=== PATIENT | male | born 1945 | race Hispanic/Latino ===

== ENCOUNTER 2020-09-19 08:58 | Emergency (ER) | payer MEDICARE ==
[2020-09-19] MEDS ORDERED: METHYLPREDNISOLONE SOD SUCC 125MG/2ML VIAL ONE (09:30)
[2020-09-19] MEDS ORDERED: MORPHINE SULFATE 4 MG/1ML SYG ONE (09:31)
[2020-09-19] MEDS ORDERED: KETOROLAC TROMETHAMINE 15MG/ML ONE (11:02)
== END 2020-09-19 12:20 | disposition home or self-care (01) ==
LOC: EDH 08:58
DX: S60.561A Insect bite (nonvenomous) of right hand, initial encounter (principal); L03.113 Cellulitis of right upper limb; L03.313 Cellulitis of chest wall; E11.9 Type 2 diabetes mellitus without complications; I10 Essential (primary) hypertension; E78.00 Pure hypercholesterolemia, unspecified; Z87.891 Personal history of nicotine dependence; W57.XXXA Bitten or stung by nonvenomous insect and other nonvenomous arthropods, initial encounter; Y93.89 Activity, other specified; Y92.89 Other specified places as the place of occurrence of the external cause; Y99.8 Other external cause status
CPT/HCPCS: 73130; 96374; 96375; 99285; J1885; J2270; J2930

== ENCOUNTER 2020-11-17 18:19 | Emergency (ER) | payer MEDICARE ==
[2020-11-17] MEDS ORDERED: LIDOCAINE HCL 1% 20 ML VIAL ONE (19:52)
[2020-11-21] MEDS ORDERED: LISI40TA4 PO (01:25)
== END 2020-11-17 21:03 | disposition home or self-care (01) ==
LOC: EDH 18:19
DX: S61.211A Laceration without foreign body of left index finger without damage to nail, initial encounter (principal); S61.412A Laceration without foreign body of left hand, initial encounter; W23.0XXA Caught, crushed, jammed, or pinched between moving objects, initial encounter; I10 Essential (primary) hypertension; E11.9 Type 2 diabetes mellitus without complications; E78.00 Pure hypercholesterolemia, unspecified; Z21 Asymptomatic human immunodeficiency virus [HIV] infection status; Y93.89 Activity, other specified; Y92.89 Other specified places as the place of occurrence of the external cause; Y99.8 Other external cause status
CPT/HCPCS: 12002; 73140

== ENCOUNTER 2020-11-19 17:46 | Inpatient (IN) | payer MEDICARE ==
[~2020-11-19] VITALS: Ht 172.7 cm; Wt 68.5 kg
[2020-11-19 18:21] LABS: BASOPHILS % (AUTO) 0.5 % (0.0-5.0); EOSINOPHILS % (AUTO) 1.3 % (0.0-8.0); HEMATOCRIT 37.5 % (42-54); LYMPHOCYTES % (AUTO) 6.1 % (21.0-51.0); MEAN CORPUSCULAR HEMOGLOBIN 30.6 pg (27.0-33.0); MEAN CORPUSCULAR HGB CONC 33.9 g/dL (32.0-36.0); MEAN CORPUSCULAR VOLUME 90.4 fL (79-99); MONOCYTES % (AUTO) 8.4 % (3.0-13.0); NEUTROPHILS % (AUTO) 83.6 % (40.0-77.0); PLATELET COUNT (AUTO) 183 K/uL (130-400); RED BLOOD CELL COUNT(AUTO) 4.15 MIL/uL (4.50-6.20); RED CELL DISTRIBUTION WIDTH 13.8 % (11.0-15.5); WHITE BLOOD COUNT (AUTO) 8.4 K/uL (4.8-10.8)
[2020-11-19] MEDS ORDERED: CEFTRIAXONE 1G VIAL ONE (18:25)
[2020-11-19] MEDS ORDERED: 0.9%NACL 50ML 50 ML IV ONE (18:26)
[2020-11-19 18:41] LABS: PROTHROMBIN TIME 10.7 SEC (9.6-11.6)
[2020-11-19 18:42] LABS: PARTIAL THROMBOPLASTIN TIME 29.1 SEC (26.3-35.5)
[2020-11-19 18:52] LABS: CREATININE 1.2 mg/dL (0.5-1.5); POTASSIUM 4.1 mmol/L (3.5-5.1)
[2020-11-19] MEDS ORDERED: AZITHROMYCIN 500MG+NS 250ML 250 ML IV ONE (18:58)
[2020-11-19 19:07] LABS: ALBUMIN 3.7 g/dL (3.5-5.0); BILIRUBIN,TOTAL 0.3 mg/dL (0.2-1.0); TOTAL PROTEIN, SERUM 8.2 g/dL (6.0-8.3)
[2020-11-19 19:08] LABS: CREATINE KINASE, TOTAL 60 U/L (21-232); MYOGLOBIN 41 ng/mL (10-92); TROPONIN I < 0.04 ng/mL (0.00-0.06)
[2020-11-19 19:09] LABS: APPEARANCE,URINE Clear (CLEAR); BILIRUBIN,URINE Negative (NEGATIVE); COLOR,URINE Yellow (YELLOW); GLUCOSE, URINE (UA) Negative (NEGATIVE); KETONES,URINE Negative (NEGATIVE); LEUKOCYTE ESTERASE ,URINE Negative (NEGATIVE); NITRATE,URINE Negative (NEGATIVE); OCCULT BLOOD,URINE Trace (NEGATIVE); PROTEIN,URINE Trace mg/dL (NEGATIVE); UROBILINOGEN,URINE 0.2 mg/dL (0.2-1.0)
[2020-11-19 19:31] LABS: BACTERIA,URINE Rare /HPF (None Seen); RBC,URINE None Seen /HPF (0-1); SQUAMOUS EPITHELIAL CELL,UR None Seen /HPF (0-2); WBC,URINE 0-1 /HPF (0-1)
[2020-11-19] MEDS: INSULIN HUMULIN R 100 UNIT/ML 3ML SQ SCH (21:00)
[2020-11-19] MEDS ORDERED: MAGNESIUM 2GM PREMIX 50ML 50 ML IV PRN (21:00)
[2020-11-19] MEDS ORDERED: DEXTROSE 50%-WATER 50 ML DISP.SYRIN IV PRN (21:00)
[2020-11-19] MEDS ORDERED: GLUCAGON 1MG KIT 1 MG ML IM PRN (21:00)
[2020-11-19] MEDS ORDERED: ONDANSETRON 4MG INJ IV PRN (21:15)
[2020-11-19] MEDS: CEFTRIAXONE 1G VIAL IVP SCH (21:15)
[2020-11-19] MEDS: DOXYCYCLINE 100MG+NS 250ML IV SCH (21:15)
[2020-11-19] MEDS ORDERED: DEXAMETHASONE SOD PHOSPHATE 4 MG/ML 1ML VIAL IVP SCH (21:15)
[2020-11-19] MEDS ORDERED: ERGOCALCIFEROL (VITAMIN D2) 50,000 UNIT CAPSULE PO ONE (21:15)
[2020-11-19] MEDS ORDERED: GUAIFENESIN-DM 200/20 MG 10 ML PO PRN (21:15)
[2020-11-19] MEDS ORDERED: ACETAMINOPHEN 325 MG TAB PO PRN ×2 (21:15)
[2020-11-19] MEDS ORDERED: DEXAMETHASONE SOD PHOSPHATE 10MG/ML 1ML VIAL ONE (22:45)
[2020-11-19] MEDS ORDERED: DOXYCYCLINE 100MG+NS 250ML 250 ML IV ONE (22:46)
[2020-11-19] MEDS ORDERED: ACETYLCYSTEINE 600 MG CAPSULE ONE (22:46)
[2020-11-19] MEDS ORDERED: ACETAMINOPHEN 325 MG TAB ONE (23:07)
[2020-11-20] MEDS ORDERED: CEFTRIAXONE 1G VIAL ONE (05:59)
[2020-11-20] MEDS: INSULIN HUMULIN R 100 UNIT/ML 3ML SQ SCH ×4 (07:30→21:00)
[2020-11-20] MEDS ORDERED: FAMOTIDINE 20MG TAB ONE (07:36)
[2020-11-20] MEDS ORDERED: ZINC SULFATE 220 CAPSULE ONE (07:37)
[2020-11-20] MEDS ORDERED: DOXYCYCLINE 100MG+NS 250ML 250 ML IV ONE (07:37)
[2020-11-20] MEDS ORDERED: BENZONATATE 100 MG CAPSULE PO ONE (08:49)
[2020-11-20] MEDS: ASCORBIC ACID 500 MG TAB PO SCH (09:00)
[2020-11-20] MEDS: LISINOPRIL 20 MG TABLET PO SCH (09:00)
[2020-11-20] MEDS: ZINC SULFATE 220 CAPSULE PO SCH (09:00)
[2020-11-20] MEDS: ACETYLCYSTEINE 600 MG CAPSULE PO SCH ×2 (09:00→21:13)
[2020-11-20] MEDS: BENZONATATE 100 MG CAPSULE PO SCH ×3 (09:00→21:00)
[2020-11-20] MEDS: FAMOTIDINE 20MG TAB PO SCH ×2 (09:00→21:00)
[2020-11-20 09:01] LABS: BASOPHILS % (AUTO) 0.6 % (0.0-5.0); EOSINOPHILS % (AUTO) 0.2 % (0.0-8.0); HEMATOCRIT 37.6 % (42-54); LYMPHOCYTES % (AUTO) 11.4 % (21.0-51.0); MEAN CORPUSCULAR VOLUME 90.8 fL (79-99); MONOCYTES % (AUTO) 10.7 % (3.0-13.0); NEUTROPHILS % (AUTO) 76.8 % (40.0-77.0); PLATELET COUNT (AUTO) 164 K/uL (130-400); RED BLOOD CELL COUNT(AUTO) 4.14 MIL/uL (4.50-6.20); RED CELL DISTRIBUTION WIDTH 14.1 % (11.0-15.5); WHITE BLOOD COUNT (AUTO) 6.4 K/uL (4.8-10.8)
[2020-11-20] MEDS: DOXYCYCLINE 100MG+NS 250ML IV SCH ×2 (09:15→21:15)
[2020-11-20] MEDS: CEFTRIAXONE 1G VIAL IVP SCH ×2 (09:15→21:12)
[2020-11-20] MEDS ORDERED: LISINOPRIL 20 MG TABLET ONE (09:46)
[2020-11-20 10:02] LABS: ALANINE AMINOTRANSFERASE 24 U/L (12-78); ALBUMIN 3.4 g/dL (3.5-5.0); ASPARTATE AMINOTRANSFERASE 23 U/L (10-37); BILIRUBIN,TOTAL 0.3 mg/dL (0.2-1.0); CARBON DIOXIDE 26 mmol/L (21-32); CHLORIDE 102 mmol/L (101-111); GLOMERULAR FILTR. RATE CALC 77 mL/min (>60); GLUCOSE,RANDOM 120 mg/dL (70-105); LACTATE DEHYDROGENASE 150 U/L (81-234); POTASSIUM 3.9 mmol/L (3.5-5.1); SODIUM SERUM 137 mmol/L (136-145); TOTAL PROTEIN, SERUM 7.6 g/dL (6.0-8.3); UREA NITROGEN, BLOOD 15 mg/dL (7-18)
[2020-11-20] MEDS ORDERED: ACETAMINOPHEN 325 MG TAB ONE (16:18)
[2020-11-20 21:01] VITALS: BP 154/75
[2020-11-20 23:52] VITALS: BP 165/72
[2020-11-21] MEDS ORDERED: LISI40TA9 PO (01:25)
[2020-11-21] MEDS ORDERED: FAMO20TA8 PO (01:25)
[2020-11-21] MEDS ORDERED: ATOR20TA65 PO (01:25)
[2020-11-21] MEDS ORDERED: ABAC1TAB15 PO (01:25)
[2020-11-21] MEDS ORDERED: GLIP5TAB11 PO (01:25)
[2020-11-21] MEDS ORDERED: CEPH500T PO (01:25)
[2020-11-21 04:09] VITALS: BP 134/59
[2020-11-21 06:55] LABS: BASOPHILS % (AUTO) 0.4 % (0.0-5.0); EOSINOPHILS % (AUTO) 0.2 % (0.0-8.0); HEMATOCRIT 36.2 % (42-54); LYMPHOCYTES % (AUTO) 23.7 % (21.0-51.0); MEAN CORPUSCULAR HEMOGLOBIN 30.1 pg (27.0-33.0); MEAN CORPUSCULAR HGB CONC 33.1 g/dL (32.0-36.0); MEAN CORPUSCULAR VOLUME 90.7 fL (79-99); MONOCYTES % (AUTO) 14.7 % (3.0-13.0); NEUTROPHILS % (AUTO) 60.8 % (40.0-77.0); PLATELET COUNT (AUTO) 162 K/uL (130-400); RED BLOOD CELL COUNT(AUTO) 3.99 MIL/uL (4.50-6.20); RED CELL DISTRIBUTION WIDTH 13.9 % (11.0-15.5); WHITE BLOOD COUNT (AUTO) 4.6 K/uL (4.8-10.8)
[2020-11-21] MEDS: INSULIN HUMULIN R 100 UNIT/ML 3ML SQ SCH ×3 (07:10→16:30)
[2020-11-21 07:38] LABS: ALBUMIN 3.1 g/dL (3.5-5.0); BILIRUBIN,TOTAL 0.2 mg/dL (0.2-1.0); CREATININE 1.1 mg/dL (0.5-1.5); CRP QUANTITATIVE 54.2 mg/L (0.00-9.0); POTASSIUM 3.6 mmol/L (3.5-5.1); TOTAL PROTEIN, SERUM 7.2 g/dL (6.0-8.3)
[2020-11-21] MEDS: ACETYLCYSTEINE 600 MG CAPSULE PO SCH (08:56)
[2020-11-21] MEDS: CEFTRIAXONE 1G VIAL IVP SCH (08:56)
[2020-11-21] MEDS: ASCORBIC ACID 500 MG TAB PO SCH (08:56)
[2020-11-21] MEDS: LISINOPRIL 20 MG TABLET PO SCH (08:56)
[2020-11-21] MEDS: BENZONATATE 100 MG CAPSULE PO SCH ×2 (08:56→13:16)
[2020-11-21] MEDS: FAMOTIDINE 20MG TAB PO SCH (08:56)
[2020-11-21] MEDS: ZINC SULFATE 220 CAPSULE PO SCH (08:56)
[2020-11-21] MEDS ORDERED: DOXYCYCLINE 100MG+NS 250ML 250 ML IV SCH (09:15)
[2020-11-21 10:18] VITALS: BP_SYST 106; BP_SYST 154; BP_DIAS 62; BP_DIAS 63
[2020-11-21 13:05] VITALS: BP 150/67
[2020-11-21] MEDS ORDERED: DOXY100T2 PO (17:19)
[2020-11-21] MEDS ORDERED: ASPI-1197 PO (17:19)
== END 2020-11-21 19:45 | disposition home or self-care (01) | DRG 177 ==
LOC: EDH 17:46 → EDHIP 21:02 → 4BH 11-20 18:53
PROVIDERS: ADMIT Internal Medicine; ATTEND Internal Medicine
DX: U07.1 COVID-19 (principal); J12.82 Pneumonia due to coronavirus disease 2019; E11.9 Type 2 diabetes mellitus without complications; E78.00 Pure hypercholesterolemia, unspecified; Z21 Asymptomatic human immunodeficiency virus [HIV] infection status; I10 Essential (primary) hypertension; E78.5 Hyperlipidemia, unspecified; Z83.3 Family history of diabetes mellitus; D64.9 Anemia, unspecified; E86.0 Dehydration
CPT/HCPCS: 12002; 36415; 71045; 73140; 74018; 80053; 81001; 82550; 82728; 82948; 83605; 83615; 83735; 83874; 84145; 84484; 85025; 85378; 85610; 85730; 86140; 86359; 86361; 86900; 86901; 87040; 87088; 87426; 87536; 93005; G0378; J0456; J0696; J1100; J3490

== ENCOUNTER 2023-11-18 06:09 | Emergency (ER) | payer MEDICARE ==
[~2023-11-18] VITALS: Ht 172.7 cm; Wt 70.3 kg
[~2023-11-18 06:09] MED LIST: ABAC1TAB15 PO; ACET-2247 PO; ASPI-1197 PO; ATOR20TA65 PO; CEPH500T PO; DOXY100T2 PO; FAMO20TA8 PO; GLIP5TAB15 PO; LISI40TA9 PO
[2023-11-18] MEDS ORDERED: FAMOTIDINE 20MG VIAL IV ONE (07:30)
[2023-11-18] MEDS ORDERED: DIAZEPAM 5 MG/ML 2 ML SYG IVP ONE (07:30)
[2023-11-18] MEDS ORDERED: KETOROLAC 30MG VIAL (30MG/ML) IVP ONE (07:30)
[2023-11-18 08:01] VITALS: BP 194/80; PULSE 70; RESP 16; O2SAT 96
[2023-11-18] MEDS ORDERED: MELO-106 PO (08:43)
[2023-11-18] MEDS ORDERED: CYCL10TA16 PO (08:43)
== END 2023-11-18 08:55 | disposition home or self-care (01) ==
LOC: EDH 06:09
DX: G89.29 Other chronic pain (principal); M54.41 Lumbago with sciatica, right side; E11.9 Type 2 diabetes mellitus without complications; I10 Essential (primary) hypertension; Z79.624 Long term (current) use of inhibitors of nucleotide synthesis; Z79.82 Long term (current) use of aspirin; Z79.84 Long term (current) use of oral hypoglycemic drugs; Z79.899 Other long term (current) drug therapy
CPT/HCPCS: 99284; 96374; 96375; J3490; J3360; J1885

== ENCOUNTER 2024-10-14 14:21 | Emergency (ER) | payer MEDICARE ==
[~2024-10-14] VITALS: Ht 172.7 cm; Wt 68.0 kg
[~2024-10-14 14:21] MED LIST changes: -ACET-2247 PO; -ASPI-1197 PO; -CEPH500T PO; +CYCL10TA16 PO; -DOXY100T2 PO; -FAMO20TA8 PO; +PANT40GR PO; +SUCR1TAB2 PO
[2024-10-14 15:48] LABS: BASOPHILS # (AUTO) 0.03 K/uL (0.00-0.20); BASOPHILS % (AUTO) 0.5 % (0.0-5.0); EOSINOPHILS # (AUTO) 0.09 K/uL (0.00-0.70); EOSINOPHILS % (AUTO) 1.4 % (0.0-8.0); HEMATOCRIT 32.8 % (42-54); IMMATURE GRANULOCYTE ABSOLUTE 0.02 K/uL (0-1); LYMPHOCYTES # (AUTO) 0.8 K/uL (1.0-4.8); LYMPHOCYTES % (AUTO) 12.1 % (21.0-51.0); MEAN CORPUSCULAR HEMOGLOBIN 30.3 pg (27.0-33.0); MEAN CORPUSCULAR HGB CONC 32.9 g/dL (32.0-36.0); MEAN CORPUSCULAR VOLUME 91.9 fL (79-99); MONOCYTES # (AUTO) 0.5 K/uL (0.1-1.0); MONOCYTES % (AUTO) 8.3 % (3.0-13.0); NEUTROPHILS # (AUTO) 5.1 K/uL (1.8-7.7); NEUTROPHILS % (AUTO) 77.4 % (40.0-77.0); PLATELET COUNT (AUTO) 177 K/uL (130-400); RED BLOOD CELL COUNT(AUTO) 3.57 MIL/uL (4.50-6.20); RED CELL DISTRIBUTION WIDTH 15.3 % (11.0-15.5); WHITE BLOOD COUNT (AUTO) 6.5 K/uL (4.8-10.8)
[2024-10-14 15:59] LABS: CREATININE 1.3 mg/dL (0.5-1.3); POTASSIUM 4.1 mmol/L (3.5-5.1)
[2024-10-14 16:00] VITALS: BP 152/86; PULSE 72; RESP 18; O2SAT 100
[2024-10-14 16:05] LABS: COVID19 (SARS ANTIGEN RAPID) PRESUMPTIVE NEGATIVE (NEGATIVE); INFLUENZA TYPE A Negative For Type A (NEGATIVE); INFLUENZA TYPE B Negative For Type B (NEGATIVE)
--- NOTE | 2024-10-14 16:20 | HMCIMG ---
CHEST 1VW REASON: cough COMPARISON: None. FINDINGS: There is a 3 cm mass in the right upper lobe, this was also seen on previous CT scan 08/23/2024 at which time it measured 2.7 cm. Lungs are otherwise clear. Heart size is normal. There is no vascular congestion. The Steinmann and bony thorax appear unremarkable. IMPRESSION: 1. 3 cm mass in the left upper lobe 2. Otherwise unremarkable chest x-ray, no acute finding.
[2024-10-14] MEDS ORDERED: BENZ-39 PO (17:36)
[2024-10-14] MEDS ORDERED: CEFP200T14 PO (17:36)
--- NOTE | 2024-10-14 17:36 | ERN ---
General Chief Complaint: Cough Stated Complaint: COUGH Time Seen by MD: 14:26 History of Present Illness Initial Comments 79-year-old male who presents for cough and congestion for almost a month now. He has a history of diabetes hypertension and HIV, currently on treatment. He has had a productive cough with phlegm. No fevers. No sore throat. Rhinorrhea. He went to his PCP, completed a course of azithromycin. He is also taking albuterol treatments as needed. He reports that he is still having phlegm production. No dyspnea or chest pain. No other symptoms. Allergies: Coded Allergies: No Known Allergies (Verified Allergy, Unknown, 11/19/20) Home Meds Active Scripts Benzonatate (Tessalon Perles) 100 Mg Cap, 1 CAP PO TID for cough for 10 Days, #30 CAP 0 Refills Prov:VIET NEGRO DO 10/14/24 Cefpodoxime Proxetil (Cefpodoxime Proxetil) 200 Mg Tablet, 200 MG PO BID for 10 Days, #20 TAB Prov:VIET NEGRO DO 10/14/24 Lisinopril (Lisinopril) 40 Mg Tablet, 40 MG PO DAILY, #30 TAB 0 Refills Prov:JESUS ANTUNEZ AGPCNP 08/29/24 Cyclobenzaprine HCl (Flexeril) 10 Mg Tab, 10 MG PO TID for muscle sstiffness, #90 TAB 2 Refills Prov:SHELBI MCKEON Sr., MD 11/18/23 Reported Medications Pantoprazole Sodium (Pantoprazole Sodium) 40 Mg Granpkt.dr, 40 MG PO DAILY, PACK 08/21/24 Sucralfate (Sucralfate) 1 Gram Tablet, 1 GM PO TIDAC, TAB 08/21/24 Glipizide (Glipizide) 5 Mg Tablet, 5 MG PO BID, TAB 11/21/20 Atorvastatin Calcium (Atorvastatin Calcium) 20 Mg Tablet, 20 MG PO DAILY, TAB 11/21/20 Abacavir/Dolutegravir/Lamivudi (Triumeq Tablet) 1 Each Tablet, 600 EACH PO DAILY, TAB 11/21/20 Past Medical History Past Medical History: Diabetes-Type II, High Cholesterol, HIV, Hypertension Medical History Other: HIV Past Surgical History: Other Surgical History Other: ABD HERNIA, BACK SX Results Laboratory and Microbiology Lab and Micro Result Laboratory Tests Test 10/14/24 15:13 10/14/24 15:30 Influenza Type A Antigen Negative For Type A Influenza Type B Antigen Negative For Type B SARS-CoV-2 Antigen (Rapid) PRESUMPTIVE NEGATIVE White Blood Count 6.5 K/uL (4.8-10.8) Red Blood Count 3.57 MIL/uL (4.50-6.20) L Hemoglobin 10.8 g/dL (14.0-18.0) L Hematocrit 32.8 % (42-54) L Mean Corpuscular Volume 91.9 fL (79-99) Mean Corpuscular Hemoglobin 30.3 pg (27.0-33.0) Mean Corpuscular Hemoglobin Concent 32.9 g/dL (32.0-36.0) Red Cell Distribution Width 15.3 % (11.0-15.5) Platelet Count 177 K/uL (130-400) Mean Platelet Volume 10.7 fL (7.5-10.5) H Immature Granulocyte % (Auto) 0.3 % (0-1) Neutrophils (%) (Auto) 77.4 % (40.0-77.0) H Lymphocytes (%) (Auto) 12.1 % (21.0-51.0) L Monocytes (%) (Auto) 8.3 % (3.0-13.0) Eosinophils (%) (Auto) 1.4 % (0.0-8.0) Basophils (%) (Auto) 0.5 % (0.0-5.0) Neutrophils # (Auto) 5.1 K/uL (1.8-7.7) Lymphocytes # (Auto) 0.8 K/uL (1.0-4.8) L Monocytes # (Auto) 0.5 K/uL (0.1-1.0) Eosinophils # (Auto) 0.09 K/uL (0.00-0.70) Basophils # (Auto) 0.03 K/uL (0.00-0.20) Absolute Immature Granulocyte (auto 0.02 K/uL (0-1) Nucleated Red Blood Cells 0.0 % (0.0-0.19) Sodium Level 134 mmol/L (136-145) L Potassium Level 4.1 mmol/L (3.5-5.1) Chloride Level 99 mmol/L (101-111) L Carbon Dioxide Level 30 mmol/L (21-32) Blood Urea Nitrogen 14 mg/dL (7-18) Creatinine 1.3 mg/dL (0.5-1.3) Glomerular Filtration Rate Calc 56 mL/min (>90) Random Glucose 149 mg/dL (70-105) H Total Calcium 8.4 mg/dL (8.5-10.1) L Total Creatine Kinase 72 U/L (21-232) Troponin I High Sensitivity 8.3 ng/L (4-75) MDM CC: Cough congestion for a month Historian: Patient Comorbidities: HIV on treatment, diabetes, hypertension Limitations by social determinants: None Differential diagnosis: Pneumonia, bronchitis, fluid overload, other. Vital signs: Stable. Oxygen saturation stable. Clinical exam he has coarse lung sounds but otherwise unremarkable. No respirat ory distress. CXR per my independent interpretation shows no focal infiltrates. Please note that the radiologist noted a 3 cm mass in the left upper lobe. I discussed with the patient, he reports that he knows about it and he has follow up already planned. Labs as independently ordered interpreted by me: No leukocytosis, left shift. Normocytic anemia hemoglobin 10.8. Chemistry panel is unremarkable Flu SARS negative Based on the patient's presentation we will treat as a community-acquired pneumonia. Patient is agreeable to this plan. We will discharge with Tessalon Perles cefpodoxime recommend PCP follow up. REASON: cough ORDERING PHYSICIAN: VIET NEGRO DO PROCEDURE: CXR1VW - CHEST 1VW CHEST 1VW REASON: cough COMPARISON: None. FINDINGS: There is a 3 cm mass in the right upper lobe, this was also seen on previous CT scan 08/23/2024 at which time it measured 2.7 cm. Lungs are otherwise clear. Heart size is normal. There is no vascular congestion. The Steinmann and bony thorax appear unremarkable. IMPRESSION: 1. 3 cm mass in the left upper lobe 2. Otherwise unremarkable chest x-ray, no acute finding. ED Course Orders Procedure Category Date Status Time Cardiac Panel LAB 10/14/24 Complete 15:09 Cbc With Differential LAB 10/14/24 Complete 15:09 Basic Metabolic Panel LAB 10/14/24 Complete 15:09 Covid19 (Sars Antigen LAB 10/14/24 Complete Rapid) 15:09 Influenza Type A & B, LAB 10/14/24 Complete Rapid 15:09 Chest 1vw RAD 10/14/24 Resulted 15:09 Vital Signs Date Time Temp Pulse Resp B/P (MAP) Pulse Ox O2 Delivery O2 Flow Rate FiO2 10/14/24 16:00 72 18 152/86 100 Room Air* 0 21 10/14/24 15:07 Room Air DX & DISP Disposition: Discharge Departure Impression: Primary Impression: Community acquired pneumonia Condition: Stable Scripts Benzonatate (Tessalon Perles) 100 Mg Cap 1 CAP PO TID for cough for 10 Days, #30 CAP 0 Refills Prov: VIET NEGRO DO 10/14/24 Cefpodoxime Proxetil (Cefpodoxime Proxetil) 200 Mg Tablet 200 MG PO BID for 10 Days, #20 TAB Prov: VIET NEGRO DO 10/14/24 Additional Instructions: Your symptoms are consistent with pneumonia. Your lab work ( CBC, BMP, CK, troponin, flu and SARS swabs) are normal. Your chest x-ray is clear. As we discussed, I have prescribed cefpodoxime, which is an antibiotic. Take as prescribed. You can continue using cough and cold medications. I have prescribed Tessalon Perles to use for cough. You can continue with the albuterol inhaler to use as needed. Please return to the emergency department if you have any high fevers, shortness of breath, or any other concerning symptom. Referrals: [facility] (PCP) VIET NEGRO DO Oct 14, 2024 17:36
== END 2024-10-14 17:42 | disposition home or self-care (01) ==
LOC: EDH 14:21
DX: J18.9 Pneumonia, unspecified organism (principal); E11.9 Type 2 diabetes mellitus without complications; E78.00 Pure hypercholesterolemia, unspecified; I10 Essential (primary) hypertension; Z20.822 Contact with and (suspected) exposure to COVID-19; Z21 Asymptomatic human immunodeficiency virus [HIV] infection status; Z79.624 Long term (current) use of inhibitors of nucleotide synthesis; Z79.84 Long term (current) use of oral hypoglycemic drugs; Z79.899 Other long term (current) drug therapy; Z98.890 Other specified postprocedural states
CPT/HCPCS: 36415; 71045; 80048; 82550; 84484; 85025; 87426; 87804; 99284